=== PATIENT | male | born 1955 | race Caucasian/White ===

== ENCOUNTER 2019-05-17 12:10 | Inpatient (IN) | payer MEDICAID ==
[~2019-05-17] VITALS: Ht 157.5 cm; Wt 84.4 kg
[~2019-05-17 12:10] MED LIST: ALDACTONE25 MG PO; BAY PO; COR3 PO; LOSARTAN POTASS25 M1 PO; METFORMIN500 M1 PO; NOR10T PO; ZOC10 PO
--- NOTE | 2019-05-17 12:54 | NUR ---
PATIENT STS THAT HE HAS BEEN HAVING A COUGH FOR A FEW DAYS AND UNABLE TO COUGH UP FLEM THAT HE BELIEVES IS IN HIS THROAT. PATIENT BREATHING E/U WITH NO S/S OF DISTRESS. PATIENT A/O X4. PATIENT STABLE. PATIENT PLACED ON LOADING MANAGER, NSR. PATIENT ORIENTED TO ROOM AND CALL LIGHT. WILL CONTINUE TO MONITOR.
[2019-05-17 13:33] LABS: CALCIUM 8.4 mg/dL (8.5-10.1); CARBON DIOXIDE 32.4 mmol/L (21-32); CHLORIDE SERUM 100 mmol/L (98-107); CREATININE SERUM 0.8 mg/dL (0.7-1.3); GFR1 > 60 mL/min; GLUCOSE SERUM 86 mg/dL (74-106); POTASSIUM SERUM 4.3 mmol/L (3.5-5.1); SODIUM SERUM 138 mmol/L (136-145)
[2019-05-17 13:37] LABS: ALBUMIN 2.8 g/dL (3.4-5.0); ALKALINE PHOSPHATASE 99 U/L (46-116); ALT/SGPT 22 U/L (16-63); AST/SGOT 18 U/L (15-37); BILIRUBIN TOTAL 0.29 mg/dL (0.20-1.00); CHOLESTEROL 132 mg/dL (<200); CHOLESTEROL/HDL RATIO 2.4; HDL CHOLESTEROL 54 mg/dL (40-60); LIPASE 113 IU/L (73-393); TOTAL PROTEIN, SERUM 7.5 g/dL (6.4-8.2); TRIGLYCERIDES 61 mg/dL (<150)
[2019-05-17 13:40] LABS: BASOPHIL % 0.3 % (0-2); PLATELET COUNT 375 x10^3mcL (130-400)
[2019-05-17 13:52] LABS: T3 TOTAL 0.86 ng/mL
[2019-05-17 14:00] LABS: RED CELL DISTRIBUTION WIDTH 19.2 % (11.5-14.5)
--- NOTE | 2019-05-17 14:00 | NUR ---
LAB NOTIFIED THAT PATIENT IS INFLUENZA B POSITIVE. DR MONTEZ MADE AWARE WILL CARRY OUT ORDER, DR LEE ALSO MADE AWARE THAT PATIENT HAS SBP OF 180. WILL AWAIT ORDERS.
[2019-05-17 14:11] LABS: FREE T4 1.2 ng/dL (0.76-1.46); FREE THYROXINE INDEX 2.7 ug/dL (1.4-4.5)
[2019-05-17] MEDS ORDERED: NATURE'S BLEND F1 MG PO (16:47)
[2019-05-17] MEDS ORDERED: CARVEDILOL25 M1 PO (16:48)
[2019-05-17] MEDS ORDERED: LISINOPRIL5 MG PO (16:48)
[2019-05-17] MEDS ORDERED: MULTIVITAMIN1 SGL PO (16:49)
[2019-05-17] MEDS ORDERED: COU2 PO (16:49)
[2019-05-17] MEDS ORDERED: FUROSEMIDE40 MG PO (16:50)
[2019-05-17] MEDS ORDERED: LIPI10 PO (16:51)
--- NOTE | 2019-05-17 16:56 | NUR ---
REPORT GIVEN TO ENRIQUE SUNSHINE AT THIS TIME ALL QUESTIONS ANSWERED.
--- NOTE | 2019-05-17 17:25 | NUR ---
PT WAS RECEIVED BY PRIMARY NURSE JONG AND FELTON, FROM ED [facility]IA [facility] AT 1713[facility]. PT CAME IN DUE TO CHEST PAIN AND SOB. AAOX4, DENIES HEADACHE/DIZZINESS. ABLE TO FOLLOW COMMANDS. NO SOB NOTED, LUNG SOUNDS DIMINISHED ON THE BASES, O2 SAT=97%, RA. DENIES CHEST PAIN/PRESSURE, SR ON THE MONITOR. DENIES ABDOMINAL DISCOMFORT. BOWEL SOUNDS ACTIVE. ABDOMEN IS SOFT. VOIDS. W/ SKIN TEAR ON THE LEFT FOREARM, COVERED W/ VERSATEL. W/ BUE ECCHYMOSIS, ELIZABETH. NEW IV SITE INSERTED ON THE RFA GAUGE 20. SIDE RAILS UPX2. CALL LIGHT ON REACH. PRIMARY NURSE JONG AT BEDSIDE FOR CONTINUITY OF CARE
[2019-05-17 17:35] VITALS: BP 164/100
[2019-05-17 17:43] VITALS: Ht 157.5 cm; Wt 84.4 kg
--- NOTE | 2019-05-17 18:20 | NUR ---
CT ANGIO COMPLETE. PROVIDED PT WITH DINNER SNACK.
--- NOTE | 2019-05-17 18:52 | NUR ---
NO ACUTE CHANGES AT THIS TIME, NO ACUTE RESP DISTRESS OR SOB NOTED. DENIES ANY CP OR PRESSURE. WILL ENDORSE TO INCOMING RN.
--- NOTE | 2019-05-17 19:20 | NUR ---
RECEIVED REPORT FROM JONG NUNEZ. PT IS AAOX4 AND MAORI SPEAKING ONLY. PT DENIES HEADACHE OR DIZZINESS AT THIS TIME. PT ON TELE #10, NSR W/ PVCs AND HR 80. PT DENIES CP OR PRESSURE AT THIS TIME. PT PULSES PALPABLE. PT EXTREMITIES ARE PALE. PT LUNG SOUNDS DIMINISHED TO BLL ON RA. PT BREATHING EVEN AND UNLABORED. PT DENIES SOB OR RESPRIRATORY DISTRESS AT THIS TIME. PT ABD SOFT AND ROUND. PT BOWEL SOUNDS ACTIVE X4. PT DENIES N/V/D AT THIS TIME. PT VOIDS FREELY USING URINAL. PT IS ON STRICT I&O. PT IS AMBULATORY. PT HAS SKIN TEAR TO LFA, DRESSING CDI AND ECCHYMOSIS TO BUE. PT IV SITES PATENT AND INTACT. CALL LIGHT WITHIN REACH. BED IN LOWEST POSITION. SIDE RAILS X2 UP. DROPLET PRECAUTIONS MAINTAINED. WILL CONTINUE TO MONITOR.
[2019-05-17 19:44] VITALS: BP 134/68
--- NOTE | 2019-05-17 22:16 | NUR ---
RECEIVED CRITICAL VALUE FOR TROPONIN 0.136. REPORTED CRITICAL VALUE TO DR. ALVAREZ. AWAITING ORDERS.
--- NOTE | 2019-05-18 01:03 | NUR ---
PT C/O PAIN TO LH IV. D/C LH IV, CATH INTACT. PRESSURE APPLIED AND BANDAGED. PT HAS RFA 20 IV PATENT AND INTACT STILL. WILL CONTINUE TO MONITOR.
--- NOTE | 2019-05-18 02:15 | NUR ---
PT SLEEPING AT THIS TIME, BUT EASILY AROUSABLE. BREATHING EVEN AND UNLABORED. NO ACUTE DISTRESS NOTED. CALL LIGHT WITHIN REACH. BED IN LOWEST POSITION. SIDE RAILS X2 UP. WILL CONTINUE TO MONITOR.
--- NOTE | 2019-05-18 03:55 | NUR ---
PT SLEEPING. PT BREATHING EVEN AND UNLABORED. NO ACUTE DISTRESS NOTED. CALL LIGHT WITHIN REACH. BED IN LOWEST POSITION. SIDE RAILS X2 UP. WILL CONTINUE TO MONITOR.
[2019-05-18 05:11] VITALS: BP 146/70
--- NOTE | 2019-05-18 05:20 | NUR ---
PT SLEPT FOR MOST OF THE NIGHT. PT COMPLIED WITH NURSING CARE THROUGHOUT THE SHIFT. NO ACUTE DISTRESS NOTED. SAFETY AND COMFORT MEASURES MAINTAINED. ALL NEEDS AND CONCERNS ADDRESSED. WILL ENDORSE TO DAY SHIFT NURSE. WILL CONTINUE TO MONITOR.
[2019-05-18 07:01] LABS: BASOPHIL % 0.6 % (0-2); PLATELET COUNT 393 x10^3mcL (130-400)
--- NOTE | 2019-05-18 07:25 | NUR ---
ENDORSED CARE TO JOHAN RN. ALL QUESTIONS AND CONCERNS ANSWERED.
--- NOTE | 2019-05-18 07:30 | NUR ---
RECEIVED PT IN BED A/A/OX4 DENIES BROWN. RESP EVEN AND UNLABORED WITH DIMINISHED BS TO BILAT BASES. ON RA, REPORTS OCC COUGHT. NSR ON TELE WITH MILDLY ELEVATED TROP LATEST 0.136. DENIES ANY CP/PRESSURE. NO EDEMA NOTED WITH IVF TO RFA. ABD SOFT, OBESE, NONTENDER WITH ACTIVE BS X4. DENIES ANY N/V AT THIS TIME. VOIDING FREELY USES URINAL. SMALL SKIN TEAR TO RFA WITH DRSG IN PLACE CDI. CALL LIGHT IN REACH NEEDS ATTENDED TO.
[2019-05-18 07:32] LABS: CALCIUM 8.7 mg/dL (8.5-10.1); CARBON DIOXIDE 28.9 mmol/L (21-32); CHLORIDE SERUM 94 mmol/L (98-107); CREATININE SERUM 0.8 mg/dL (0.7-1.3); GFR1 > 60 mL/min; GLUCOSE SERUM 105 mg/dL (74-106); PHOSPHOROUS 4.6 mg/dL (2.5-4.9); POTASSIUM SERUM 3.8 mmol/L (3.5-5.1); SODIUM SERUM 130 mmol/L (136-145)
[2019-05-18 07:33] LABS: rbc morphology (normal/abnorm) ABNORMAL (NORMAL)
[2019-05-18 07:55] LABS: microscopic required? NO
[2019-05-18 08:37] LABS: urine erythrocyte NEGATIVE (NEGATIVE)
[2019-05-18 09:00] LABS: AMPHETAMINE QUAL UR NONE DETECTED (See below)
[2019-05-18 09:17] VITALS: BP 149/64
--- NOTE | 2019-05-18 11:40 | NUR ---
PT RESTING AT THIS TIME. REPORTS ANXIETY AWAITING FOR MD TO ORDER MEDICATION.
--- NOTE | 2019-05-18 12:40 | NUR ---
RECEIVED ORDER FOR ATIVAN FOR ANXIETY. PT MEDICATED PER EMAR. CALL LIGHT IN REACH NEEDS ATTENDED TO.
[2019-05-18 16:41] VITALS: BP 147/88
--- NOTE | 2019-05-18 16:57 | NUR ---
Discount pharmcay card and list to low cost medical clinics given to patient by Laura.
--- NOTE | 2019-05-18 18:10 | NUR ---
PT RESTING AT THIS TIME. DENIES ANY DISCOMFORT. CALL LIGHT IN REACH NEEDS ATTENDED TO.
--- NOTE | 2019-05-18 19:15 | NUR ---
REPORT RECEIVED FROM DAY SHIFT RN. PATIENT WAS SEEN RESTING COMFORTABLY IN BED. NO DISTRESS NOTED. NO SOB OR RESP DISTRESS NOTED. BREATHING EVEN AND UNLABORED ON ROOM AIR. DENIES CHEST PAIN/PRESSURE. NO C/O PAIN. DENIES BROWN OR DIZZINESS. IV TO THE RFA. SALINE LOCK. PATENT AND INTACT. NO REDNESS OR SWELLING NOTED. ON DROPLET PRECAUTIONS. COMFORT AND SAFETY MEASURES IN PLACE. BED IS LOCKED AND IN THE LOWEST POSITION. SIDE RAILS UP X2. CALL LIGHT IS WITHIN REACH. WILL CONTINUE TO MONITOR.
[2019-05-18 21:55] VITALS: BP 138/87
[2019-05-19 05:22] VITALS: BP 156/94
--- NOTE | 2019-05-19 06:00 | NUR ---
RESTING IN LONG INTERVALS THROUGHOUT THE NIGHT. NO ACUTE CHANGES NOTED. NO DISTRESS NOTED. BREATHING EVEN AND UNLABORED ON ROOM AIR. NO SOB OR RESP DISTRESS NOTED. NO C/O PAIN THROUGHOUT THE NIGHT. DENIES CHEST PAIN. IV TO THE RFA, SALINE LOCK. PATENT AND INTACT. NO REDNESS OR SWELLING NOTED. DROPLET PRECAUTIONS IN PLACE AND MAINTAINED. SAFETY MEASURES IN PLACE. CALL LIGHT IS WITHIN REACH. WILL ENDORSE CARE TO DAY SHIFT RN.
[2019-05-19 06:45] LABS: BASOPHIL % 0.8 % (0-2)
[2019-05-19 06:48] LABS: CALCIUM 8.8 mg/dL (8.5-10.1); CARBON DIOXIDE 31.6 mmol/L (21-32); CHLORIDE SERUM 97 mmol/L (98-107); CREATININE SERUM 0.9 mg/dL (0.7-1.3); GFR1 > 60 mL/min; GLUCOSE SERUM 114 mg/dL (74-106); MAGNESIUM 2.1 mg/dL (1.8-2.4); PHOSPHOROUS 4.2 mg/dL (2.5-4.9); POTASSIUM SERUM 3.8 mmol/L (3.5-5.1); SODIUM SERUM 136 mmol/L (136-145)
--- NOTE | 2019-05-19 07:30 | NUR ---
RECEIVED PT IN BED A/A/OX4 DENIES BROWN. RESP EVEN AND UNLABORED WITH DIMINISHED BS TO BILAT BASES. REPORTS OCC COUGH. NO EDEMA NOTED WITH IV SL TO RFA. ABD SOFT, NONTENDER WITH ACTIVE BS X4. DENIES ANY N/V AT THIS TIME. VOIDING FREELY AND AMBULATORY. DROPPLET PRECAUTIONS IN PLACE. CALL LIGHT IN REACH NEEDS ATTENDED TO.
[2019-05-19 08:32] VITALS: BP 140/71
[2019-05-19 09:11] LABS: PLATELET COUNT 449 x10^3mcL (130-400); RED CELL DISTRIBUTION WIDTH 18.6 % (11.5-14.5)
--- NOTE | 2019-05-19 10:00 | NUR ---
NOTED ERYTHEMA ABOVE IV SITE. IV D/C AT THIS TIME. NEW IV INSERT 22G TO RFA. PT TOLERATED WELL.
--- NOTE | 2019-05-19 12:15 | NUR ---
PER PRIMARY RN REQUESTTO CHECK LEFT FOREARM SKIN TEAR, 3X3CM AREA COVER WITH VERSATEL DRESSING WITH SCATTERED DRY BLOOD AND DRY SCABS, RAQUEL WOUND SKIN WARM AND INTACT, NO ERYTHEMA, NO S/S OF INFECTION. WOUND CARE TEACHING DONE TO PT. PT. VERBALIZES UNDERSTANDING.
--- NOTE | 2019-05-19 12:20 | NUR ---
PT NOTED WITH INFILTRATED IV. PIECE PRESSER FAYE MADE AWARE THAT PT REFUSED REINSERTION AND WANTED TO GO HOME. PIECE PRESSER TO SPEAK WITH PT. CALL LIGHT IN REACH NEEDS ATTENDED TO.
[2019-05-19 13:20] VITALS: BP 133/87
--- NOTE | 2019-05-19 15:02 | NUR ---
SPOKE WITH TAPE CONTROLLED MACHINE STITCHER DISCUSSED IF PT WILL HAVE A COUMADIN DOSE TONIGHT. PER TAPE CONTROLLED MACHINE STITCHER PT DOES NOT HAVE COVERAGE FOR XARELTO AND SHE WILL ORDER COUMADIN DOSE. AWAITING FURTHER ORDERS.
[2019-05-19 17:56] VITALS: BP 131/77; BP 145/87
--- NOTE | 2019-05-19 18:51 | NUR ---
PT RESTING AT THIS TIME. DENIES ANY DISCOMFORT. CALL LIGHT IN REACH NEEDS ATTENDED TO.
--- NOTE | 2019-05-19 19:40 | NUR ---
RECEIVED REPORT FROM DAY SHIFT RN. PT RESTING IN BED. AA&O X4. NO SOB ON ROOM AIR. BREATHING EVEN AND UNLABORED. NO C/O CHEST PAIN. IV TO RFA, SALINE LOCKED. SAFETY MEASURES IN PLACE. BED IN LOWEST POSITION. SIDE RAILS UP X2. ON DROPLET PRECAUTIONS. INSTRUCTED PT TO USE THE CALL LIGHT FOR ASSISTANCE. CALL LIGHT WITHIN REACH.
[2019-05-19 20:46] VITALS: BP 150/89
--- NOTE | 2019-05-20 07:30 | NUR ---
PT RESTED IN LONG INTERVALS DURING SHIFT. NO SOB ON ROOM AIR. NO C/O PAIN. NO ACUTE DISTRESS NOTED. SAFETY MEASURES MAINTAINED. ALL NEEDS ATTENDED TO. CALL LIGHT WITHIN REACH. ENDORSED CARE TO DAY SHIFT RN.
--- NOTE | 2019-05-20 07:30 | NUR ---
RECEIVED PATIENT IN BED IN ISOLATION FOR + INFLUENZA B. ALERT ORIENTED BAHRAINI SPEAKING . TELE 10 NSR. HL PATENT RT F/A. RESP EVEN AND UNLABORED, LUNGS DIIM BLL. ON ROOM AIR DENIES ANY SOB OR COUGH AT THIS TIME. AMBULATES AD NAUN TO THE BATHROOM WITH SLOW STEADY GAIT. NO ACUTE DISTRESS NOTED.
[2019-05-20 08:57] VITALS: BP 110/72
[2019-05-20 12:04] VITALS: BP 131/80
--- NOTE | 2019-05-20 14:36 | NUR ---
PATIENT'S PLAN OF CARE WAS DISCUSSED AND REVIEWED WITH CYCLE CONSULTANT:BRITTANY VARMA. I HAVE REVIEWED THE DATA COLLECTION BY CYCLE CONSULTANT (NAME):BRITTANY VARMA. ENTERED ON (DATE/TIME):05/20/2019. I CONCUR WITH THE DATA AND ANY EXCEPTIONS OR COMMENTS ARE LISTED BELOW:
[2019-05-20 16:15] VITALS: BP 135/77
--- NOTE | 2019-05-20 16:17 | NUR ---
DRESSING CHANGED TO LEFT ARM S/T ORDERED. PATIENT REMAINS IN ISOLATION, DENIES ANY PAIN OR DISCOMFORT. 1200ML FLUID RESTRICTION IN PLACE. DENIES ANY CHEST PAIN OR DISCOMFORT.
--- NOTE | 2019-05-20 17:15 | NUR ---
PATIENT SITTING UP ON THE SIDE OF THE BED. C/O HAVING BILAT KNEE PAIN 7/10 ON THE PAIN SCALE. MEDICATED WITH NORCO AT THIS TIME. WILL MONITOR FOR EFFECT.
--- NOTE | 2019-05-20 17:55 | NUR ---
PATIENT UP ON THE SIDE OF THE BED EATING DINNER TRAY. PER PATIENT HE IS STARTING TO GET SOME PAIN RELIEF AFTER NORCO WAS GIVEN. WILL CONTINUE TO MONITOR.
--- NOTE | 2019-05-20 20:24 | NUR ---
RECIEVED PT FROM PREVIOUS SHIFT NURSE. PT AOX4. RR EVEN AND UNLAOBORED, IN NO ACUTE DISTRESS. IV RFA 22G, PATENT AND CDI. BED IN LOWEST POSITION AND CALL LIGHT WITHIN REACH. WILL CONTINUE TO MONITOR.
[2019-05-20 21:20] VITALS: BP 135/76
--- NOTE | 2019-05-21 00:35 | NUR ---
PT RESTING IN BED. RR EVEN AND UNLABORED. IN NO SIGN OF ACUTE DISTRESS. BED IN LOWEST POSITION AND CALL LIGHT WITHIN REACH. WILL CONTINUE TO MONITOR.
[2019-05-21 04:13] VITALS: BP 138/73
[2019-05-21 06:32] LABS: BASOPHIL % 0.3 % (0-2)
[2019-05-21 06:41] LABS: CALCIUM 8.8 mg/dL (8.5-10.1); CARBON DIOXIDE 30.5 mmol/L (21-32); CHLORIDE SERUM 98 mmol/L (98-107); CREATININE SERUM 0.8 mg/dL (0.7-1.3); GFR1 > 60 mL/min; GLUCOSE SERUM 102 mg/dL (74-106); POTASSIUM SERUM 3.9 mmol/L (3.5-5.1); SODIUM SERUM 133 mmol/L (136-145)
[2019-05-21 06:47] LABS: PLATELET COUNT 427 x10^3mcL (130-400); RED CELL DISTRIBUTION WIDTH 18.4 % (11.5-14.5)
--- NOTE | 2019-05-21 07:35 | NUR ---
SEEN IN BED AAOX4. NO SOB, BREATHING E/U ON ROOM AIR. LUNG SOUND CTA BILATERALLY. DENIES CHEST PAIN STATED JUST MILD THROBLING PAIN TO LEFT FOREARM SKIN TEAR, DRSG NOTED CDI. STATED VOIDS FREELY, AMBULATORY. S/L TO RFA INTACT AND PATENT. CALL LIGHT PLACED WITHIN EASY REACH. SIDERAILS UP X2.
[2019-05-21 08:33] VITALS: BP 126/76
[2019-05-21 12:03] VITALS: BP 136/68
[2019-05-21 16:43] VITALS: BP 142/82
--- NOTE | 2019-05-21 18:45 | NUR ---
NO ANY DISTRESS THROUGHOUT SHIFT. VSS. NORCO GIVEN X2 FOR LEFT ARM SKIN TEAR PAIN WITH GOOD RELIEF. BRP. S/L TO RFA INTACT AND PATENT.
--- NOTE | 2019-05-21 20:27 | NUR ---
RECIEVED PT FROM PREVIOUS SHIFT NURSE. PT RESTING IN BED, AND AOX4. RR EVEN AND UNLABORED. IV RH PATENT AND CDI. NO SIGNS OF ACUTE DISTRESS. BED IN LOWEST POSITION AND CALL LIGHT WITHIN REACH. WILL CONTINUE TO MONITOR.
[2019-05-21 20:50] VITALS: BP 152/74
--- NOTE | 2019-05-22 02:25 | NUR ---
PT RESTING. RR EVEN AND UNLABORED. NO SIGNS OF ACUTE DISTRESS. BED IN LOWEST POSITION AND CALL LIGHT WITHIN REACH. WILL CONTINUE MONITOR
[2019-05-22 05:06] VITALS: BP 139/78
--- NOTE | 2019-05-22 07:37 | NUR ---
RECIEVED REPORT FROM [facility] NURSE NURSE. PATIENT IS CURRENTLY ON DROPLET PRECAUTIONS FOR INFLUENZA B. PATIENT IS ALERT AND ORIENTED. NO REPORT OF PAIN OR SOB AT THIS TIME. LUNG SOUNDS DIMINISHED AT BASES AT THIS TIME. IV TO THE RIGHT FOREARM CURRENTLY SALINE LOCKED.
[2019-05-22 08:55] VITALS: BP 143/77
[2019-05-22 12:24] VITALS: BP 135/74
[2019-05-22 13:19] VITALS: BP 135/74
--- NOTE | 2019-05-22 17:14 | NUR ---
DISCHARGE INSTRUCTIONS AND EDUCATION PROVIDED TO PATIENT AND AT BEDSIDE. UTILIZED ASSISTANCE OF FAMILY DAY CARER VIA FAMILY DAY CARER PHONE FOR TRANSLATION TO JAPANESE. PATIENT VERBALIZED UNDERSTANDING. IV DISCONTINUED AND REMOVED IN TACT. NEW DRESSING PLACED TO LEFT LOWER ARM WOUND. PICTURES TAKEN AND PLACED IN CHART. PATIENT EDUCATED ON IMPORTANCE OF YEARLY VACCINATIONS. PATIENT AND ESCORTED TO THE LOBBY IN WHEELCHAIR BY DECK LID FITTER.
== END 2019-05-22 14:54 | disposition home or self-care (01) | DRG 194 ==
LOC: ED 12:10 → DU 13:34 → MU 05-20 13:07
PROVIDERS: Internal Medicine; Specialist; ADMIT Family Medicine
DX: I11.0 Hypertensive heart disease with heart failure (principal); I21.A1 Myocardial infarction type 2; Z79.01 Long term (current) use of anticoagulants; I50.23 Acute on chronic systolic (congestive) heart failure; E11.9 Type 2 diabetes mellitus without complications; E78.5 Hyperlipidemia, unspecified; J10.1 Influenza due to other identified influenza virus with other respiratory manifestations; Z79.82 Long term (current) use of aspirin; Z68.34 Body mass index [BMI] 34.0-34.9, adult; Z86.711 Personal history of pulmonary embolism; Z79.84 Long term (current) use of oral hypoglycemic drugs
CPT/HCPCS: 82962; 83880; 84439; 87804; 90658; G0378; J1940; J2405; J7030; Q9967

== ENCOUNTER 2020-06-05 15:26 | Emergency (ER) | payer MEDICAID ==
[~2020-06-05] VITALS: Ht 157.5 cm; Wt 87.1 kg
[~2020-06-05 15:26] MED LIST changes: +ADULT LOW DOSE81 MG PO; +ALD25 PO; +ATORVASTATIN CA40 M1 PO; +CARVEDILOL25 M1 PO; +COU2 PO; +COUMADIN5 MG PO; +FUROSEMIDE40 MG PO; +LIPI10 PO; +LISINOPRIL5 MG PO; +MULTIVITAMIN1 SGL PO; +NAPROXEN SODIU375 M1 PO; +NATURE'S BLEND F1 MG PO
[2020-06-05 15:53] VITALS: Ht 157.5 cm; Wt 87.1 kg
[2020-06-05 16:31] LABS: BASOPHIL % 0.3 % (0.2-1.5)
[2020-06-05 16:33] LABS: RED CELL DISTRIBUTION WIDTH 20.7 % (12.1-16.2)
[2020-06-05 16:54] LABS: CALCIUM 7.7 mg/dL (8.5-10.1); CARBON DIOXIDE 31.4 mmol/L (21-32); CHLORIDE SERUM 96 mmol/L (98-107); CREATININE SERUM 1.1 mg/dL (0.7-1.3); GFR1 > 60 mL/min; GLUCOSE SERUM 103 mg/dL (74-106); POTASSIUM SERUM 3.9 mmol/L (3.5-5.1); SODIUM SERUM 134 mmol/L (136-145)
[2020-06-05 17:00] LABS: ALKALINE PHOSPHATASE 111 U/L (46-116); ALT/SGPT 19 U/L (16-63); AST/SGOT 16 U/L (15-37); BILIRUBIN TOTAL 0.4 mg/dL (0.20-1.00); HDL CHOLESTEROL 36 mg/dL (40-60); LIPASE 105 IU/L (73-393); TOTAL PROTEIN, SERUM 6.7 g/dL (6.4-8.2); TRIGLYCERIDES 101 mg/dL (<150)
[2020-06-05 17:11] LABS: ALBUMIN 2.9 g/dL (3.4-5.0); CHOLESTEROL 117 mg/dL (<200); CHOLESTEROL/HDL RATIO 3.3
[2020-06-05 17:13] LABS: ovalocyte/elliptocyte 1+; rbc morphology (normal/abnorm) ABNORMAL (NORMAL)
[2020-06-05 17:21] LABS: PLATELET COUNT 612 x10^3mcL (152-348)
[2020-06-05] MEDS ORDERED: NORCO1 TA2 PO (17:43)
[2020-06-05] MEDS ORDERED: ZOFRAN4 M3 PO (17:43)
[2020-06-05 18:28] VITALS: BP 166/90
== END 2020-06-05 18:28 | disposition home or self-care (01) ==
LOC: ED 15:26
PROVIDERS: Specialist
DX: K80.50 Calculus of bile duct without cholangitis or cholecystitis without obstruction (principal); I10 Essential (primary) hypertension; E11.9 Type 2 diabetes mellitus without complications; M19.90 Unspecified osteoarthritis, unspecified site; E66.09 Other obesity due to excess calories
CPT/HCPCS: 83880; J1885; J2405; J3010; J7030

== ENCOUNTER 2020-06-13 10:47 | Emergency (ER) | payer MEDICAID ==
[~2020-06-13] VITALS: Ht 165.1 cm; Wt 86.2 kg
[~2020-06-13 10:47] MED LIST changes: +NORCO1 TA2 PO; +ZOFRAN4 M3 PO
[2020-06-13 10:56] VITALS: BP 166/96; Ht 165.1 cm; Wt 86.2 kg
[2020-06-14] MEDS ORDERED: ELIQUIS5 M1 PO (16:37)
[2020-06-14] MEDS ORDERED: MELOXICAM7.5 M1 PO (16:37)
[2020-06-14] MEDS ORDERED: LIPI10 PO (16:37)
== END 2020-06-13 11:41 | disposition home or self-care (01) ==
LOC: ED 10:47
DX: J02.9 Acute pharyngitis, unspecified (principal); I10 Essential (primary) hypertension; E11.9 Type 2 diabetes mellitus without complications; M19.90 Unspecified osteoarthritis, unspecified site

== ENCOUNTER 2020-06-29 04:51 | Emergency (ER) | payer MEDICAID, SELFPAY ==
[~2020-06-29] VITALS: Ht 157.5 cm; Wt 86.2 kg
[~2020-06-29 04:51] MED LIST changes: +ELIQUIS5 M1 PO; +MELOXICAM7.5 M1 PO
[2020-06-29 04:56] VITALS: Ht 157.5 cm; Wt 86.2 kg
[2020-06-29 05:54] LABS: BASOPHIL % 1.4 % (0.2-1.5)
[2020-06-29 05:57] LABS: CALCIUM 8.8 mg/dL (8.5-10.1); CARBON DIOXIDE 28.2 mmol/L (21-32); CHLORIDE SERUM 99 mmol/L (98-107); GFR1 > 60 mL/min; GLUCOSE SERUM 127 mg/dL (74-106); POTASSIUM SERUM 4.2 mmol/L (3.5-5.1); SODIUM SERUM 132 mmol/L (136-145)
[2020-06-29 06:02] LABS: ALKALINE PHOSPHATASE 107 U/L (46-116); ALT/SGPT 21 U/L (16-63); AST/SGOT 16 U/L (15-37); BILIRUBIN TOTAL 0.36 mg/dL (0.20-1.00); TOTAL PROTEIN, SERUM 7.4 g/dL (6.4-8.2)
[2020-06-29 06:09] LABS: ALBUMIN 2.9 g/dL (3.4-5.0)
[2020-06-29 06:27] LABS: PLATELET COUNT 537 x10^3mcL (152-348)
[2020-06-29 11:29] VITALS: BP 162/84
== END 2020-06-29 11:15 | disposition home or self-care (01) ==
LOC: ED 04:51
PROVIDERS: Student in an Organized Health Care Education/Training Program
DX: I11.0 Hypertensive heart disease with heart failure (principal); I50.9 Heart failure, unspecified; E11.9 Type 2 diabetes mellitus without complications
CPT/HCPCS: 83880; J1940